=== PATIENT | female | born 1960 | race Caucasian/White ===

== ENCOUNTER 2017-04-26 16:06 | Inpatient (IN) | payer OTHER ==
[~2017-04-26] VITALS: Ht 170.2 cm; Wt 111.0 kg
[2017-05-14] VITALS (10 sets, daily range): BP systolic 97–136; BP diastolic 59–78; PULSE 17–79; TEMP 98–98.4
[2017-05-14] MEDS ORDERED: KLONOPIN 1MG1 MG PO (07:26)
[2017-05-14] MEDS ORDERED: ULTRAM 50MG TAB50 MG PO (07:27)
[2017-05-14] MEDS ORDERED: PRILOSEC 20MG20 MG PO (07:27)
[2017-05-14] MEDS ORDERED: CELEXA 20MG20 MG/TAB PO (07:28)
[2017-05-15] VITALS (7 sets, daily range): BP systolic 125–145; BP diastolic 77–84; PULSE 82–102; TEMP 98–100
[2017-05-15 07:11] LABS: HEMATOCRIT 33.5 % (37.0-47.0); HEMOGLOBIN 11.2 g/dl (12.5-16.0)
[2017-05-16 03:39] VITALS: BP 146/83; PULSE 101; TEMP 99.1
[2017-05-16 07:31] VITALS: BP 131/83; PULSE 112; TEMP 99.6
[2017-05-16 08:07] LABS: HEMATOCRIT 31.5 % (37.0-47.0); HEMOGLOBIN 10.5 g/dl (12.5-16.0)
[2017-05-16 12:17] VITALS: BP 110/63; PULSE 103; TEMP 98.9
== END 2017-05-16 16:19 | disposition home or self-care (01) | DRG 470 ==
LOC: JCC 05-14 07:03 → SURG 05-15 18:30 → JCC 05-15 19:02
PROVIDERS: Orthopaedic Surgery
PROC: 0SRD0J9 Replacement of Left Knee Joint with Synthetic Substitute, Cemented, Open Approach (ICD-10-PCS; principal; 2017-05-14 10:35)
PROC: 3E0U33Z Introduction of Anti-inflammatory into Joints, Percutaneous Approach (ICD-10-PCS; 2017-05-14 10:35)
DX: M17.0 Bilateral primary osteoarthritis of knee (principal); Z23 Encounter for immunization; Z87.891 Personal history of nicotine dependence
CPT/HCPCS: A9284; C1713; C1776; J0690; J2175; J2250; J2270; J2274; J2704; J3010; J3301; J3410; J7042; J7120